=== PATIENT | female | born 1965 | race Caucasian/White ===

== ENCOUNTER 2021-03-11 03:29 | Day surgery (SDC) | payer SELFPAY ==
[~2021-03-11] VITALS: Ht 152.4 cm; Wt 61.3 kg
[2021-03-11] VITALS (8 sets, daily range): BP systolic 108–147; BP diastolic 60–78
[2021-03-11 04:56] LABS: HEMATOCRIT 41.8 % (37.0-47.0); HEMOGLOBIN 13.7 g/dl (12.0-16.0); IMMATURE GRANULOCYTES 0.6 % (0.0-5.0); MEAN CELL VOLUME 89.1 fL CALC (80.0-100.0); MEAN CORPUSCULAR HGB 29.2 pG CALC (26.0-32.0); MEAN CORPUSCULAR HGB CONC 32.8 g/dL CAL (32.0-36.0); NEUT# 10.67 thou/uL (2.00-7.15); RED BLOOD COUNT 4.69 mill/uL (4.20-5.60); RED CELL DISTRI WIDTH 12.6 % (11.5-15.5)
[2021-03-11 04:57] LABS: ALBUMIN 4.6 g/dL (3.2-5.0); ALKALINE PHOSPHATASE 106 u/l (38-126); AMYLASE 79 u/l (30-110); ANION GAP 15 (6-22 (CALC)); BILIRUBIN, TOTAL 0.5 mg/dL (0.0-1.4); BUN 14 mg/dL (7-17); BUN/CREATININE RATIO 28 (12-20 (CALC)); CARBON DIOXIDE 27 mmol/l (22-30); CHLORIDE 98 mmol/l (95-108); CREATININE 0.5 mg/dL (0.5-1.0); GFR > 60 ML/MIN (>=60 (CALC)); GFR FOR AFR.AMER. > 60 ML/MIN (>=60 (CALC)); LIPASE 61 u/l (23-300); POTASSIUM 4.1 mmol/l (3.5-5.1); SGOT/AST 39 u/l (14-36); SODIUM 136 mmol/l (137-146); TOTAL PROTEIN 8.8 g/dL (6.3-8.2)
[2021-03-11 05:04] LABS: URINE BILIRUBIN - DIPSTICK NEGATIVE (NEGATIVE); URINE BLOOD DIPSTICK NEGATIVE (NEGATIVE); URINE COLOR YELLOW; URINE GLUCOSE - DIPSTICK 100 mg/dL (NEGATIVE); URINE KETONE NEGATIVE (NEGATIVE); URINE LEUK ESTERASE NEGATIVE (NEGATIVE); URINE PROTEIN - DIPSTICK NEGATIVE (NEG-TRACE); URINE UROBILINOGEN - DIPSTICK 0.2 E.U./dL (0.2)
[2021-03-11 05:08] LABS: URINE NITRITE - DIPSTICK NEGATIVE (Negative)
[2021-03-11 05:12] LABS: URINE AMORPH SEDIMENT MANY hpf (NONE-FEW); URINE RBC 0-2 RBC/hpf (0-5); URINE SQUAMOUS EPITHELIAL CELL FEW EPI/hpf (0-FEW)
--- NOTE | 2021-03-11 14:08 | NUR ---
PT ARRIVED TO MED SURG ROOM 289 VIA STRETCHER ACCOMPAINED BY OR STAFF. PT IS A/O X3 AND [place] SPEAKING MOSTLY. CATIA, RN AT BEDSIDE TO ASSIST WITH TRANSLATION. ASSESSMENT AND VITALS OBTAINED. RESPIRATIONS ARE EVEN AND UNLABORED WITH NO DISTRESS NOTED ON ROOM AIR. LUNG SOUNDS ARE CLEAR. HEART RHYTHM NORMAL. BOWEL SOUNDS ARE HYPOACTIVE. #20F RAC INFUSING WITH IVF PER ORDER, SITE REMAINS HEALTHY AND PATENT. LAP MARA SITES X4 WITH DERMABOND NOTED. PT COMPLAINS OF 4/10 PAIN AND REFUSES PAIN MEDICAITONS AT THIS TIME. SCDS APPLIED. PT EDUCATED ON I.S DEVICE. ALLERGIES NOTED, BAND APPLIED. PT ORIENTED TO ROOM AND CALL SYSTEM. ALL SAFETY PRECAUTIONS ARE IN PLACE WITH CALL LIGHT IN REACH. AIR/CONTACT PRECAUTIONS. WILL CONTINUE TO MONITOR
--- NOTE | 2021-03-11 16:20 | NUR ---
PT RESTING IN SEMI FOWLERS POSITION. RESPIRATIONSA RE EVEN AND UNLABORED WITH NO DISTRESS NOTED ON ROOM AIR. IVF INFUSING PER ORDER, SITE REMAINS HEALTHY AND PATENT. ICE APPLIED TO ABD. PT TOLERATING WELL. PT COMPLAINS OF 4/10 PAIN, REFUSES PAIN MEDICAITON AT THIS TIME. ALL SAFETY PRECAUTIONS ARE IN PLACE WITH CALL LIGHT IN REACH. WILL CONTINUE TO MONITOR.
--- NOTE | 2021-03-11 17:30 | NUR ---
PT REFUSING PAIN MEDICATION AT THIS TIME.
--- NOTE | 2021-03-11 21:00 | NUR ---
PT ASSESSMENT COMPLETED AT THIS TIME. INCISIONS X4 LAP INCISIONS ASSESSED TO BE CDI. PT DENIES PAIN AT THIS TIME ALSO. ENCOURAGED HER TO USE CALL LIGHT ANY NEEDS OF ASSISTANCE OR FOR PAIN, VERBALIZED UNDERSTANDING. CALL LIGHT W/IN REACH. PT IS ON ROOM AIR AND SAT LEVELS ARE 99%.
--- NOTE | 2021-03-12 00:18 | NUR ---
PT MEDICATED ORDERS SCHEDULED FOR PAIN 4/10 ON PAIN SCALE AND IV ANTIBIOTIC THERAPY. PT DENIES ANY NEEDS. LAP INCISIONS ARE CDI.
[2021-03-12 00:58] VITALS: BP 99/62
[2021-03-12 04:37] VITALS: BP 98/51
--- NOTE | 2021-03-12 05:01 | NUR ---
PT MEDICATED ORDERS PROVIDE, DENIES ANY NEEDS. SHE DOES REPORT SELF AMBULATING TO RESTROOM AND BACK TO THE BED. IV ANTIBIOTIC THERAPY ADMINSTERED AT THIS TIME ALONG WITH TORODOL SCHEDULED FOR PAIN REPORTED 2/10 ON PAIN SCALE. LAPOROSCOPIC INCISIONS X4 CDI.
[2021-03-12 05:50] LABS: IMMATURE GRANULOCYTES 0.1 % (0.0-5.0); MEAN CELL VOLUME 91.8 fL CALC (80.0-100.0); MEAN CORPUSCULAR HGB 29.6 pG CALC (26.0-32.0); MEAN CORPUSCULAR HGB CONC 32.2 g/dL CAL (32.0-36.0); NEUT# 5.32 thou/uL (2.00-7.15); RED BLOOD COUNT 3.89 mill/uL (4.20-5.60); RED CELL DISTRI WIDTH 13.2 % (11.5-15.5)
[2021-03-12 05:52] LABS: HEMATOCRIT 35.7 % (37.0-47.0); HEMOGLOBIN 11.5 g/dl (12.0-16.0)
[2021-03-12 06:05] LABS: ANION GAP 10 (6-22 (CALC)); BUN 13 mg/dL (7-17); BUN/CREATININE RATIO 18 (12-20 (CALC)); CARBON DIOXIDE 23 mmol/l (22-30); CHLORIDE 106 mmol/l (95-108); CREATININE 0.7 mg/dL (0.5-1.0); GFR > 60 ML/MIN (>=60 (CALC)); GFR FOR AFR.AMER. > 60 ML/MIN (>=60 (CALC)); POTASSIUM 3.6 mmol/l (3.5-5.1); SODIUM 136 mmol/l (137-146)
--- NOTE | 2021-03-12 06:50 | NUR ---
REPORT REC FROM Gilbert DOMINGUEZ RN
[2021-03-12] MEDS ORDERED: PERCOCET 5/325M1 TAB PO (07:16)
[2021-03-12 08:10] VITALS: BP 97/53
--- NOTE | 2021-03-12 13:01 | NUR ---
Discharge instructions given in spans[place] also given [place]an written instructions. Patient verbalizes understanding of same. Discharged in stable condition via wheelchair to home with staff. All belongings sent with pt. Pt instructed to see for a follow up appointment in 7-10 days. Instuctions given on no heavy lifting, or strenous activity, pt educated on pain medication, and the ability to shower.
== END 2021-03-12 13:00 | disposition home or self-care (01) | DRG 417 ==
LOC: ED 03:29 → ED-I 03:59 → ORM 08:44 → ED 08:44 → MS2 14:09 → ORM 03-12 13:00
PROVIDERS: ATTEND Surgery
PROC: 0FT44ZZ Resection of Gallbladder, Percutaneous Endoscopic Approach (ICD-10-PCS; principal; 2021-03-11)
DX: K80.00 Calculus of gallbladder with acute cholecystitis without obstruction (principal); U07.1 COVID-19
CPT/HCPCS: J1610; Q9967; S0164